=== PATIENT | female | born 1940 | race African-American/Black ===

== ENCOUNTER → 2019-05-12 | Outpatient (CLI) | payer OTHER ==
[2019-05-12 09:34] LABS: microscopic required? YES; urine erythrocyte NEGATIVE (NEGATIVE)
[2019-05-13 09:05] LABS: CREATININE UR 59.9 mg/dL (Not Estab.)
== END | disposition home or self-care (01) ==
LOC: LB 08:55
PROVIDERS: Internal Medicine Nephrology
DX: N18.2 Chronic kidney disease, stage 2 (mild) (principal); E87.5 Hyperkalemia; I10 Essential (primary) hypertension; M79.606 Pain in leg, unspecified